=== PATIENT | female | born 1930 | race Caucasian/White ===

== ENCOUNTER 2016-11-17 11:31 | Inpatient (IN) | payer MEDICARE, BC ==
[~2016-11-17] VITALS: Ht 165.1 cm; Wt 72.6 kg
--- NOTE | ~2016-11-17 | CON ---
PATIENT'S NAME: WENDY SANDS [facility] AGE: 86 Y [address] ROOM: [place] [address] LOCATION: [facility] ADMIT DATE: 11/17/2016 Consultation DISCHARGE DATE: FAMILY PHYSICIAN: Maxi Esteves DO ATTENDING PHYSICIAN: Yang Craven DATE OF CONSULTATION: 12/04/2016 REFERRING PHYSICIAN: PATRICIA MANNING MD CHIEF COMPLAINT: Urinary urgency and frequency. HISTORY OF PRESENT ILLNESS: The patient is an 86-year-old female, who is currently admitted to the rehabilitation unit for treatment given her recent history of stroke. She had initially presented with right-sided weakness, left hand weakness, and wrist pain at the [facility]. She also had an apparent unwitnessed fall, which resulted in a left metatarsal fracture. She was also found on CT scan to have a 2 cm left basal ganglia hemorrhage. The patient is a poor historian, but nursing reports that she has had some difficulties with urinary urgency and frequency. She has been emptying her bladder well with minimal residual and her most recent postvoid residual was 94 mL. I did have the nurses check another urine yesterday, which came back unimpressive with negative nitrites and no bacteria. Her urine culture has not had any growth to date. She also was reportedly treated recently with Keflex. The Hospitalist Team has been also treating her for a yeast vaginitis. The patient has no further questions or concerns at this time. PAST MEDICAL HISTORY: 1. Aortic valve stenosis. 2. Hypertension. 3. Hyperlipidemia. 4. Diabetes mellitus. 5. Left basal ganglia stroke. 6. Atrial fibrillation. 7. Hypothyroidism. 8. Congestive heart failure. 9. Anemia. PAST SURGICAL HISTORY: 1. Tonsillectomy and adenoidectomy. 2. Cataract surgery. 3. Aortic valve replacement in March 2014. 4. Left heart catheterization in March 2014. PATIENT'S NAME: WENDY SANDS [facility] AGE: 86 Y [address] ROOM: [place] [address] LOCATION: [facility] ADMIT DATE: 11/17/2016 Consultation DISCHARGE DATE: FAMILY PHYSICIAN: Maxi Esteves DO ATTENDING PHYSICIAN: Yang Craven FAMILY HISTORY: No reported family history of any genitourinary abnormalities. SOCIAL HISTORY: The patient is and had been living in an assisted living facility. She denies any alcohol or tobacco use. ALLERGIES: CODEINE, SIMVASTATIN, DARVOCET, AND NAPROXEN. MEDICATIONS: See hospitalization medication reconciliation. REVIEW OF SYSTEMS: A full 10+ point review of systems was performed with pertinent positive and negative findings included in the history of present illness. All other systems were reviewed and are otherwise negative. PHYSICAL EXAMINATION: VITAL SIGNS: Temperature 97.6 Fahrenheit, pulse 81, blood pressure 105/59, respiratory rate 18, and oxygen saturation 94% on room air. CONSTITUTIONAL: No acute distress. Hemodynamically stable. HEENT: Extraocular muscles intact. Mucous membranes moist. No drainage per ears or nose. CARDIAC: Good peripheral perfusion. RESPIRATORY: No audible wheezing. ABDOMEN: Soft, nontender, and nondistended. MUSCULOSKELETAL: Moves all extremities. PSYCHIATRIC: The patient is somewhat of a poor historian, but fairly normal affect. HEMATOLOGIC: No bruising or active sites of bleeding. IMPRESSION: 1. Urinary urgency. 2. Urinary frequency. PLAN: I had a brief discussion with the patient regarding my findings. Her urinary urgency and frequency is not likely secondary to urinary tract infection given negative urinalysis and no significant bacterial growth on culture. I would agree with the Hospitalist Team that some of this urgency and frequency could be secondary to her current yeast vaginitis. I will defer to the Hospitalist Team on continued treatment for her vaginitis. She appears to be emptying her bladder well with minimal residual on postvoid residual bladder scan. I also agree with the Hospitalist Team that I would be hesitant on starting an PATIENT'S NAME: WENDY SANDS [facility] AGE: 86 Y [address] ROOM: [address] [place] [id number] LOCATION: [facility] ADMIT DATE: 11/17/2016 Consultation DISCHARGE DATE: FAMILY PHYSICIAN: Maxi Esteves DO ATTENDING PHYSICIAN: Yang Craven anticholinergic in this 86-year-old frail patient. The primary team, however, could consider a beta-3 agonist, which would be more favorable from a side effect profile for her with Myrbetriq 50 mg daily if they are able to get this from pharmacy. I do not recommend any further evaluation or treatment at this time from a urologic perspective. She may also possibly have a component of neurogenic bladder. Certainly contact our service with any further questions or concerns at this time, but at this point Urology will be signing off. MD JACKIE TABOR/suzi /[id number] d: 12/04/16 1811 t: 12/05/16 1553, CONSULTATION REPORT
--- NOTE | ~2016-11-17 | CON ---
PATIENT'S NAME: ARA SANDS [facility] AGE: 86 Y [address] ROOM: [id number] [place], [place] [address] LOCATION: [facility] ADMIT DATE: 11/17/2016 Consultation DISCHARGE DATE: FAMILY PHYSICIAN: Maxi Esteves DO ATTENDING PHYSICIAN: Ramin Rogers DATE OF CONSULTATION: 12/07/2016 REFERRING PHYSICIAN: PATRICIA MANNING MD Team members reporting include Dr. Yang Craven acting for Dr. Rogers this week; Temitope Steen, health care social worker, backup on Dr. Rogers; Honey Arreguin, RN; Ashley Alfredo, PT; Yuliana Corley, PT; Laura Chappell, OT; Rafia Smith, Speech Therapy; Vangie Juarez, therapeutic rec; and Sister Darcy Barnett, Pastoral Care. CURRENT STATUS: Ara is an 86-year-old woman, admitted to our inpatient rehab unit following a CVA. The patient is continent of bowel and bladder. Skin overall is pretty good, has a bruise on her left toe and her right elbow. She occasionally complains of a headache. The patient did have a yeast infection, and this has helped considerably with her incontinence. The patient is on a consistent carbohydrate, uses a tippy cup every meal with built-up silverware taking Glucerna t.i.d. and Magic Cup b.i.d. The patient can complete transfers, sit to supine, and supine to sit, contact guard assistance to minimal assistance; kbi-mz-wajhb and stand to sit, minimal assistance; and bed to chair and chair to bed, contact guard assistance to minimal assistance. She can walk up to 50 feet with a platform front-wheeled walker which is still a dependent task. Stairs have not been done yet for safety. She can propel her wheelchair 50 feet at contact guard assistance. She has met 3 out of 5 short-term PT goals. The patient can dress her upper body at moderate assistance; lower body, dependent; grooming, standby; bathing, moderate assistance; toilet and shower transfers, moderate assistance; toileting, dependent; and feeding, standby assistance. She has met 0 short-term OT goals. The patient's comprehension is at mod I; language and expression, standby; memory, max to moderate assistance; and problem solving, standby. The patient can complete car transfers at minimal assistance. She does do some scanning when she is out. She uses her right upper extremity to roll dice and hold cards. The patient is open to pastoral care. DISCHARGE PLAN: The patient is receiving 3 hours of PT, OT, and Speech, Tuesday through Tuesday. The patient has daily rehab, nursing, and physiatry involvement as well as therapeutic recreational services 4 days per week. The patient has shown functional improvement and is progressing. Please see her plan of care for specific goals. Plan is for the patient to discharge in approximately 2 PATIENT'S NAME: ARA SANDS [facility] AGE: 86 Y [address] ROOM: [address] [place] [id number] LOCATION: [facility] ADMIT DATE: 11/17/2016 Consultation DISCHARGE DATE: FAMILY PHYSICIAN: Maxi Esteves DO ATTENDING PHYSICIAN: Ramin Rogers. Plan is for the patient to go to a senior living facility upon discharge. TEMITOPE STEEN FOR RAMIN ROGERS MD TD/modl /[id number] d: 12/13/161950 t: 01/06/17 1606, CONSULTATION REPORT
--- NOTE | ~2016-11-17 | CON ---
PATIENT'S NAME: ARA SANDS [facility] AGE: 86 Y [address] ROOM: [place] [address] LOCATION: [facility] ADMIT DATE: 11/17/2016 Consultation DISCHARGE DATE: FAMILY PHYSICIAN: Maxi Esteves DO ATTENDING PHYSICIAN: Ramin Real REFERRING PHYSICIAN: PATRICIA MANNING MD REFERRING PHYSICIANS: Dr. Maxi Esteves and Dr. Real. REASON FOR CONSULT: CVA with known remote history of paroxysmal atrial fibrillation in 2013. Ara was admitted to the [facility] on 11/03/2016 after she had an unwitnessed fall. She was not aware of what caused the fall, but she had a resultant left wrist and hand pain and ended up with metatarsal fracture and was found to have right-sided weakness. Her CT scan showed a 2 cm left basal ganglia hemorrhage. The patient displayed a right hemiparesis as well as some aphasia. She was evaluated by Dr. Wisdom and was felt that it was a nonsurgical case and that they should continue to watch her at [facility]. She now presents to the inpatient rehab for further intense therapy. Currently, she denies any problems with palpitations, lightheadedness, or dizziness. No presyncope or syncopal episodes. PAST MEDICAL HISTORY: 1. Aortic valve stenosis, status post aortic valve replacement #19 mm Sykes Magna tissue valve in March 2014. 2. Essential hypertension. 3. Dyslipidemia. 4. New onset of diabetes mellitus diagnosis. PAST SURGICAL HISTORY: 1. Fifth metacarpal fracture on the right hand. 2. T and A. 3. Cataract extraction. 4. Aortic valve replacement by Dr. Evans in March 2014. 5. Left heart catheterization in March 2014. ALLERGIES: CODEINE CAUSES A RASH, MYALGIAS ON SIMVASTATIN, GI UPSET WITH DARVOCET, NAPROXEN WHILE DRINK. CURRENT MEDICATIONS: 1. Tylenol 650 mg three times a day. 2. Enalapril 10 mg twice a day. 3. Ferrous sulfate 325 mg daily. 4. Levothyroxine daily. PATIENT'S NAME: ARA SANDS [facility] AGE: 86 Y [address] ROOM: [place] [address] LOCATION: [facility] ADMIT DATE: 11/17/2016 Consultation DISCHARGE DATE: FAMILY PHYSICIAN: Maxi Esteves DO ATTENDING PHYSICIAN: Ramin Real 5. MiraLAX 17 g twice a day. 6. Aspirin 81 mg daily. 7. Biofreeze topical gel as needed. 8. Colace 100 mg twice a day. 9. Lasix 20 mg daily. 10. Metoprolol tartrate 50 mg twice a day. 11. Crestor 5 mg on Tuesday, Tuesday, and Tuesday. 12. Effexor 75 mg daily. SOCIAL HISTORY: She had been living in an assisted living. She denies alcohol or tobacco use. She is . FAMILY HISTORY: Father in his 60s. He had coronary artery disease. He also had skin cancer. Mother of breast cancer. She also had diabetes mellitus. REVIEW OF SYSTEMS: A 13-point review of systems was obtained and was negative other than noted above. PHYSICAL EXAMINATION: HEART: Heart rates in the 50s regular with a normal S1, S2 with grade 2/6 systolic ejection murmur as well as a sharp click and preserved 2nd heart sound. LUNGS: Sounds showed no evidence of wheezes, rales, or rhonchi. HEENT: Her speech is a little bit slurred. Her neck is without JVD, adenopathy, or carotid bruits. ABDOMEN: Soft. Bowel sounds are present. EXTREMITIES: No peripheral edema. No clubbing and no cyanosis. NEUROLOGIC: She is able to flex her right arm, but unable to extend her hands. Gait was not assessed. LABORATORY DATA: Accu-Chek has been in the 120s to 140 range. WBC 11.9, hemoglobin 14.1, and platelets are 86. Glucose 122, BUN 14, creatinine 0.8. Sodium is 137, potassium 3.9, magnesium was 2.0, hemoglobin A1c was 7.3. UA showed 100 leukocytes, negative nitrites, and 2 to 5 epithelials, moderate bacteria. TSH 1.060. ASSESSMENT: 1. Cerebrovascular accident, small hemorrhagic stroke. She does have a very remote history of paroxysmal atrial fibrillation that was documented in a note back in 2013, but has not had any further recurrence that we know of. We will place a telemetry for short periods time to rule out any PATIENT'S NAME: SHAVON ARA Josue [facility] AGE: 86 Y [address] ROOM: [address] [place] [id number] LOCATION: [facility] ADMIT DATE: 11/17/2016 Consultation DISCHARGE DATE: FAMILY PHYSICIAN: Maxi Esteves DO ATTENDING PHYSICIAN: Ramin Real arrhythmic events. 2. Aortic valve stenosis. She had an echocardiogram done in August of 2015, her EF at that time was 55-60. She had mild LVH with assessment of grade 1 diastolic dysfunction. The aortic valve was prosthetic with no perivalvular leak and appeared to be functioning appropriately. We will continue to monitor. 3. Hypertension. Blood pressure is under good control. Continue with her current home medications. The assessment and plan, history of present illness, and physical exam are per Dr. Damion Toth. We would like to thank Dr. Real for allowing us to participate in this patient's care. CASTILLO EL APRN FOR MATT TOTH MD TGP/modl /[id number] d: 11/18/16 1659 t: 12/30/16 1134, CONSULTATION REPORT
--- NOTE | ~2016-11-17 | HP ---
PATIENT'S NAME: WENDY SANDS [facility] AGE: 86 Y [address] ROOM: [place] [address] LOCATION: [facility] ADMIT DATE: 11/17/2016 History & Physical DISCHARGE DATE: FAMILY PHYSICIAN: Maxi Esteves DO ATTENDING PHYSICIAN: Ramin Real DATE OF SERVICE: 11/18/[address] Real. The patient was seen and examined on 11/18/2016. CHIEF COMPLAINT: Boxer's fracture, left hand. HISTORY OF PRESENT ILLNESS: This 86-year-old female fell on 11/04/2016 at her home in [place], [place]. She bumped her head and had some mental status changes and injured her left hand. She demonstrated hemiparesis and aphasia. X-rays of her left hand demonstrated a boxer's fracture. She was placed in an ulnar gutter splint. CT scan of her head showed a 2-cm left basal ganglia hemorrhage. Dr. Wisdom recommended nonsurgical treatment of the basal ganglia hemorrhage. She is improved and is currently hospitalized at the Inpatient Rehab Unit at [facility]. Her speech is improved as well as her memory deficits. She complains of only mild pain in her left hand. PAST MEDICAL HISTORY: No prior fractures, aortic valve stenosis, status post aortic valve replacement, dyslipidemia, essential hypertension, hypothyroidism, type 2 diabetes, status post tonsillectomy and cataract extractions, history of hemangiomas, chronic constipation, and depression. ALLERGIES: CODEINE. MEDICATIONS: 1. Enalapril. 2. Ferrous sulfate. 3. Levothyroxine. 4. MiraLAX. 5. Aspirin 81 mg daily. 6. Colace. 7. Lasix. 8. Metoprolol. 9. Crestor. 10. Effexor. PATIENT'S NAME: WENDY SANDS [facility] AGE: 86 Y [address] ROOM: [place] [id number] LOCATION: [facility] ADMIT DATE: 11/17/2016 History & Physical DISCHARGE DATE: FAMILY PHYSICIAN: Maxi Esteves DO ATTENDING PHYSICIAN: Ramin Real SOCIAL HISTORY: . Lived in assisted living in [place]. No alcohol or tobacco use. FAMILY HISTORY: Positive for coronary artery disease, skin cancer, and diabetes in her mother, and breast cancer in paternal grandmother. REVIEW OF SYSTEMS: No coughs, colds, fevers, chills, or sore throats. No chest pain or trouble breathing. No nausea or vomiting. No dysuria or hematuria. She has had mental status changes, which have cleared. She did have some dizziness and decreased mental status. PHYSICAL EXAMINATION: GENERAL: She is mildly drowsy. She is awake and responds to questions. VITAL SIGNS: Blood pressure 129/73, pulse 68 and regular, respirations 17, and temp 98, HEENT: Atraumatic, normocephalic. PERRL. EOMI. TMs clear. Throat clear. NECK: Supple. CHEST: Clear to auscultation. HEART: Regular rhythm. ABDOMEN: Mildly obese, soft, nontender. No masses. EXTREMITIES: She has a little weakness in her right upper and lower extremities. Her splint is removed, she has mild tenderness and swelling at the 5th metacarpal, she is able to flex and extend her digits. There is no rotational deformity. Sensation is intact. Pulses good. Reflexes equal upper and lower extremity. LABORATORY DATA: X-rays AP, lateral, and obliques of her left hand demonstrate a boxer's fracture with volar angulation. Reduction is satisfactory. IMPRESSION: 1. Boxer's fracture with volar angulation, left 5th metacarpal. 2. Status post fall with mental status changes, now resolving with basal ganglia hemorrhage. 3. Hypothyroidism. 4. Hypertension. 5. Dyslipidemia. 6. Status post aortic valve replacement. 7. Type 2 diabetes. 8. Status post tonsillectomy and cataract extractions. 9. Depression. PATIENT'S NAME: WENDY SANDS [facility] AGE: 86 Y [address] ROOM: [place] [address] LOCATION: [facility] ADMIT DATE: 11/17/2016 History & Physical DISCHARGE DATE: FAMILY PHYSICIAN: Maxi Esteves DO ATTENDING PHYSICIAN: Ramin Real PLAN: An ulnar gutter splint was applied to the left forearm and hand immobilizing the fracture. She may use the hand as tolerated in the splint and progress with physical and occupational therapy. In 2 weeks, we can remove the splint to begin exercises for her hand and follow up x-rays in a couple of weeks. I discussed the treatment plan with the patient. She understands and desires to proceed as planned. MD LUCIE DIMAS/modl /[id number] CC: DO Ramin Fox MD D: [id number] T: [id number] HISTORY & PHYSICAL
--- NOTE | ~2016-11-17 | CON ---
PATIENT'S NAME: WENDY SANDS [facility] AGE: 86 Y [address] ROOM: [address] [place], [place] [address] LOCATION: [facility] ADMIT DATE: 11/17/2016 Consultation DISCHARGE DATE: 12/23/2016 FAMILY PHYSICIAN: Maxi Esteves DO ATTENDING PHYSICIAN: Ramin Rogers DATE OF CONSULTATION: 12/14/2016 REFERRING PHYSICIAN: Polly Estrada MD Team members reporting include Dr. Rogers; Temitope Steen, social professionals; Honey Arreguin, RN; Ashley Alfredo, PT; Yuliana Corley, PT; Laura Chappell, OT; aRfia Smith, Speech Therapy; Vangie Juarez, therapeutic rec; and Sister Eneida Barrera, pastoral Care. CURRENT STATUS: Beatrice Bullock is an 86-year-old woman, who is admitted to our inpatient rehab unit following a CVA. The patient is currently continent of bowel and bladder, occasional incontinence of bladder. She does have redness on her bottom with no open areas. Taking Tylenol for pain. She can transfer sit to supine and supine to sit, contact guard assistance; ptv-[id number] and stand to sit, contact guard assistance; and bed to chair and chair to bed, contact guard assistance. She can complete a scoot transfer at contact guard assistance. She can walk 30 feet with minimal to moderate assistance using a dominguez walker. This is still considered a some dependent task as it requires 2 people at times. She can climb up four stairs with 2 railings at moderate to dependents. She has met 3/4 short-term PT goals. The patient can dress her upper body at standby; lower body, dependent; grooming, standby; bathing, minimal assistance; toilet and shower transfers, contact guard assistance using a scoot technique. Toileting max to dependent with lots of verbal cues needed and feeding, standby assistance. The patient overall is attending to her right side more. She has met 3/5 short-term OT goals. Comprehension, language, and expression are mod I. memory moderate to max assistance; and problem solving, standby assistance. She can complete car transfers at contact guard assistance to minimal assistance. She does have a memory book. DISCHARGE PLAN: The patient is receiving 3 hours of PT, OT, and speech Tuesday through Tuesday. The patient has daily rehab, nursing, and physiatry involvement as well as therapeutic recreational services 4 days per week. The patient has shown functional improvement and is progressing. Please see her plan of care for specific goals. Plan is for patient to discharge in approximately 7 to 10 days. Plan [facility]. PATIENT'S NAME: WENDY SANDS [facility] AGE: 86 Y [address] ROOM: [id number] [place] [id number] LOCATION: [facility] ADMIT DATE: 11/17/2016 Consultation DISCHARGE DATE: 12/23/2016 FAMILY PHYSICIAN: Maxi Esteves DO ATTENDING PHYSICIAN: Ramin Rogers TEMITOPE STEEN FOR RAMIN ROGERS MD TD/maribelll /[id number] d: t: 12/24/16 1453, CONSULTATION REPORT
--- NOTE | ~2016-11-17 | CON ---
PATIENT'S NAME: WENDY SANDS [facility] AGE: 86 Y [address] ROOM: [place] [address] LOCATION: [facility] ADMIT DATE: 11/17/2016 Consultation DISCHARGE DATE: FAMILY PHYSICIAN: Maxi Esteves DO ATTENDING PHYSICIAN: Ramin Real DATE OF CONSULTATION: 11/17/2016 REFERRING PHYSICIAN: PATRICIA MANNING MD CONSULTATION NOTE ATTENDING PHYSICIAN: Ramin Real MD CONSULTING PHYSICIAN: Patricia Manning MD REASON FOR CONSULTATION: Medication management. HISTORY OF PRESENT ILLNESS: The patient is a pleasant 86-year-old female, who fell on 11/04/2016. A CT scan at [facility] showed a 2 cm left basal ganglia hemorrhage. The patient displayed right hemiparesis and some aphasia. During the fall, she sustained a 5th metacarpal fracture on the right-hand side. This is currently splinted. CT scan had been initially evaluated by Dr. Wisdom. He felt that it was a nonsurgical case and they can continue to watch the patient at [place]. If any signs of neurological change occurred, the patient was to be transferred here, however, the patient continued to do well. At this point in time, she is getting some range of motion back on her right side upper and lower extremities. Her speech is cleared up. The patient suffers no increased memory deficits. At this time, she is admitted to [facility] for continued intensive rehabilitation. PAST MEDICAL HISTORY: Illnesses include: 1. Aortic valve stenosis status post aortic valve replacement with bioprosthetic valve in 2013. 2. Dyslipidemia. 3. Essential hypertension. 4. Hypothyroidism. 5. New-onset diabetes mellitus, type 2. 6. 5th metacarpal fracture on the right. 7. Status post tonsillectomy. 8. Status post cataract extraction. PATIENT'S NAME: WENDY SANDS [facility] AGE: 86 Y [address] ROOM: [place] [address] LOCATION: [facility] ADMIT DATE: 11/17/2016 Consultation DISCHARGE DATE: FAMILY PHYSICIAN: Maxi Esteves DO ATTENDING PHYSICIAN: Ramin Real 9. History of hemangioma. 10. Chronic constipation. 11. Depression. ALLERGIES: CODEINE. CURRENT MEDICATIONS: Include: 1. Tylenol 650 mg p.o. 3 times daily. 2. Enalapril 10 mg twice daily. 3. Ferrous sulfate 325 mg daily. 4. Levothyroxine 125 mcg daily. 5. MiraLAX 17 g twice daily. 6. Aspirin enteric-coated 81 mg. 7. Biofreeze topical gel as needed. 8. Colace 100 mg twice daily. 9. Lasix 20 mg daily. 10. Metoprolol tartrate 50 mg twice daily. 11. Crestor 5 mg on Mondays, Wednesdays, and Fridays. 12. Effexor XR 75 mg once daily. SOCIAL HISTORY: The patient is , lived in an assisted living facility in [place]. Denies any alcohol, tobacco, or drug use. FAMILY HISTORY: Significant for coronary artery disease and skin cancer in her father. Diabetes in her mother, and breast cancer in a paternal grandmother. REVIEW OF SYSTEMS: A 13-point review of systems was obtained and otherwise negative other than noted above. PHYSICAL EXAMINATION: VITAL SIGNS: Temperature is 98.1, pulse is 56, respirations 16, and blood pressure 137/60. She is 92% on room air. Weight is 75.75 kg. GENERAL: The patient is alert, oriented, in no acute distress. HEENT: Head, normocephalic and atraumatic. Eyes; PERRL. EOMI. Ears; TMs are intact. Nonerythematous. Canals are clear. Nose is patent. Mucosa is pink and moist. Throat; posterior pharynx nonerythematous. No tonsillar hypertrophy or exudates. NECK: Supple. No adenopathy or thyromegaly. LUNGS: Clear to auscultation and percussion bilaterally. Breath sounds are even and regular throughout. PATIENT'S NAME: WENDY SANDS [facility] AGE: 86 Y [address] ROOM: [place] [id number] LOCATION: [facility] ADMIT DATE: 11/17/2016 Consultation DISCHARGE DATE: FAMILY PHYSICIAN: Maxi Esteves DO ATTENDING PHYSICIAN: Ramin Real HEART: Regular with a click and murmur of her prosthetic valve. ABDOMEN: Soft, nondistended. Positive bowel sounds auscultated. No masses or organomegaly palpated. EXTREMITIES: Free of edema, cyanosis, or clubbing. NEUROLOGIC: She has diminished range of motion in her right and left lower extremities. Her motor strength and fine motor skills are diminished. Left upper extremity has minimal range of motion secondary to extensive splinting of the left hand. Full range of motion and sensation in the left lower extremity. LABORATORY DATA: I do have a urinalysis present at our facility. On microanalysis, it shows 10- 20 white blood cells, and moderate bacteria. IMPRESSION AND PLAN: 1. 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 We will continue with restorative care with occupational, physical, and speech therapies. We will continue her aspirin at this time as well as her medications for secondary risk reduction. 2. Aortic valve stenosis status post aortic valve replacement. Monitor fluid status closely. Continue her Lasix at this time as well as her metoprolol. 3. Dyslipidemia, continue Crestor. 4. Essential hypertension. Continue medications with holding parameters in place. 5. Hypothyroidism. We will check a TSH. Otherwise, continue her levothyroxine. 6. 5th metacarpal fracture. We will have Dr. Craven evaluate the patient for activity and any use of assistive devices. 7. Chronic constipation. Continue bowel stimulants as ordered. 8. New-onset diabetes mellitus. As reported by the family, we will get a hemoglobin A1c and cover with sliding scale and diabetic diet. Make adjustments as necessary to her regimen. 9. Code Status: DNR. We do appreciate participating in this patient's care and thank you very much for the ability to serve her while hospitalized at [facility]. WILSON LEDESMA FOR PATRICIA MANNING MD FRIDA/modl PATIENT'S NAME: WENDY SANDS [facility] AGE: 86 Y [address] ROOM: [place] [address] LOCATION: [facility] ADMIT DATE: 11/17/2016 Consultation DISCHARGE DATE: FAMILY PHYSICIAN: Maxi Esteves DO ATTENDING PHYSICIAN: Ramin Real #: [id number] d: 11/17/162249 t: 01/02/17 161, CONSULTATION REPORT
--- NOTE | ~2016-11-17 | HP ---
PATIENT'S NAME: WENDY SANDS [facility] AGE: 86 Y [address] ROOM: [address] [address] LOCATION: [facility] ADMIT DATE: 11/17/2016 History & Physical DISCHARGE DATE: FAMILY PHYSICIAN: Maxi Esteves DO ATTENDING PHYSICIAN: Ramin Real DATE OF SERVICE: This 86-year-old is admitted for continuous medical treatment and intensive rehabilitation, referred from [facility] with, 1. Right hemiplegia secondary to left basal ganglia, hemorrhagic stroke, with unstable gait. 2. Dependent in activities of daily and self care. She is at the present time, alert, oriented. Vitals are as follows: Blood pressure 149/74, temperature 97.5, pulse 88, respiration rate 18-20. She is 5 feet 5 inches tall and weighs 75.5 kg. ALLERGIES: REPORTED THAT SHE IS ALLERGIC TO CODEINE. SHE IS AT THE PRESENT TIME ON THE FOLLOWING MEDICATIONS. 1. DOCUSATE SODIUM 100 MG P.O. DAILY. 2. FUROSEMIDE 20 MG P.O. DAILY. 3. METOPROLOL TARTRATE 50 MG ONE TABLET DAILY. 4. ROSUVASTATIN 10 MG, GIVE 5 MG P.O. ON TUESDAY, TUESDAY, AND TUESDAY. 5. VENLAFAXINE 75 MG P.O. DAILY EXTENDED RELEASE. 6. TYLENOL 325 MG 1 P.O. 4 HOURS, DO NOT EXCEED ACETAMINOPHEN 4 G Q.24 HOURS. 7. ENALAPRIL TABLET 10 MG P.O. B.I.D. 8. FERROUS SULFATE 325 MG P.O. DAILY. 9. LEVOTHROID 50 MCG P.O. DAILY. 10. POLYETHYLENE GLYCOL 17 G P.O. B.I.D. 11. ASPIRIN EC 81 MG ONE TABLET P.O. DAILY. 12. MIRALAX 17 G P.O. DAILY. 13. TEDS KNEE-HIGH WITH PLEXIPULSES. PAST MEDICAL HISTORY: Past history of significant, 1. History of fifth left metacarpal bone fracture, at the present time she splinted with the next finger. 2. Hypertension. 3. Mitral valve replacement. 4. Hypothyroid. 5. Possible atrial fibrillation. [facility] AGE: 86 Y [address] ROOM: [place] [address] LOCATION: [facility] ADMIT DATE: 11/17/2016 History & Physical DISCHARGE DATE: FAMILY PHYSICIAN: Maxi Esteves DO ATTENDING PHYSICIAN: Ramin Real 6. Congestive heart failure. 7. Anemia. At the present time, she is able to follow instructions, fairly well. Her speech is clear and not wet. She is weak on the right side, muscle strength throughout at about 3 to 3+ with decreased endurance. She has at high risk of falling. We will put on intensive PT, OT, Speech 3 hours per day, 15 hours per week for about 3-4 week aiming to discharge on modified independence. We will have hospitalist to follow her and have neurologist Dr. Cooper to follow her, Dr. Damion Perez, Cardiology, to follow on her, and Dr. Wisdom also to follow on her. At the present time, her blood work is as follows. Accu-Chek at 0703 hours, 118. CBC: White BC 11.9, RBC 4.63, hemoglobin 14.1, hematocrit 42.6, and platelets 86. CMS: Sodium 137, potassium 3.9, chloride 104, CO2 24, BUN 14, creatinine 0.8 and glucose 122. Hemoglobin A1c is 7.3. UA with bacteria moderate, but no complaint. Thyroid stimulation hormone 1.060. Prealbumin 26. ASSESSMENT AND PLAN: We will have also Dr. Craven and Dr. Lou to follow on her. Dr. Craven for the fracture of the fifth left metacarpal bone and Dr. Lou for complaint of toothache. The patient will be on intensive PT, OT, and Speech 3 hours per day, 15 hours per week for the coming about 3-4 weeks, aiming to discharge back to her assisted living as before. All the above was explained to her and her son and daughter, they verbalized understanding and agreement. PATIENT'S NAME: WENDY SANDS [facility] AGE: 86 Y [address] ROOM: [place] [address] LOCATION: [facility] ADMIT DATE: 11/17/2016 History & Physical DISCHARGE DATE: FAMILY PHYSICIAN: Maxi Esteves DO ATTENDING PHYSICIAN: Ramin Real MD WMS/modl /[id number] D: [id number] T: [id number] HISTORY & PHYSICAL
--- NOTE | ~2016-11-17 | CON ---
PATIENT'S NAME: ARA SANDS [facility] AGE: 86 Y [address] ROOM: [address] [place] [address] LOCATION: [facility] ADMIT DATE: 11/17/2016 Consultation DISCHARGE DATE: FAMILY PHYSICIAN: Maxi Esteves DO ATTENDING PHYSICIAN: Ramin Rogers DATE OF CONSULTATION: 11/30/2016 REFERRING PHYSICIAN: PATRICIA MANNING MD Team members reporting include Dr. Rogers; Temitope Steen, protective services social worker; Honey Arreguin, RN; Ashley Alfredo, PT; Yuliana Corley, PT; Laura Chappell, OT; Rafia Smith, Speech Therapy; Vangie Juarez, therapeutic rec; and Sister Darcy Barnett, Pastoral Care. CURRENT STATUS: Ara is an 86-year-old woman admitted to our inpatient rehab unit on November 17, 2016, following a CVA. She is occasionally incontinent of bladder. No skin issues. Takes Tylenol for pain. Occasionally complains of pain to her left hand. She is on a consistent carbohydrate diet. She is to get a tippy cup every meal with built-up silverware. The patient is on Glucerna t.i.d. and Magic cup b.i.d. Prealbumin is currently at 25. The patient can transfer sit to supine and supine to sit at minimal assistance; [id number] and stand to sit, minimal assistance. Can complete a scoot transfer at minimal assistance. The patient is able to stand, walking approximately 8 to 10 feet, which is still a labor intensive task that is dependent. The patient has been more alert. She can propel her wheelchair 50 feet on a level surface at contact guard assistance. She has met 2/4 short-term PT goals. The patient can dress her upper body at minimal assistance, takes a lot of time; lower body dressing, dependent; grooming, standby; bathing, moderate assistance; toilet transfers, minimal to moderate assistance. She has met 3/5 short-term OT goals. Comprehension, language, and expression, standby; memory, moderate to max assistance, uses a memory book; problem solving, standby. She needs follow up to complete oral cares. Car transfers will be done at the end of the week. She is using her right hand more in therapy. The patient has been open to pastoral care. DISCHARGE PLAN: The patient is receiving 3 hours of PT, OT, and speech Tuesday through Tuesday. The patient has daily rehab, nursing, and physiatry involvement as well as therapeutic recreational services 4 days per week. The patient has shown functional improvement and is progressing. Please see her plan of care for specific goals. Plan is for the patient to discharge in approximately 2 to 3 weeks. Plan is for the patient to most likely go to a penitentiary facility after discharge here at [facility]. PATIENT'S NAME: ARA SANDS [facility] AGE: 86 Y [address] ROOM: [place] [address] LOCATION: [facility] ADMIT DATE: 11/17/2016 Consultation DISCHARGE DATE: FAMILY PHYSICIAN: Maxi Esteves DO ATTENDING PHYSICIAN: Ramin Rogers TEMITOPERONALD STEEN FOR RAMIN ROGERS MD TD/modl /[id number] d: 12/13/160 t: 01/06/17 1603, CONSULTATION REPORT
--- NOTE | ~2016-11-17 | CON ---
PATIENT'S NAME: WENDY VEE [facility] AGE: 86 Y [address] ROOM: [address] [place], [place] [address] LOCATION: [facility] ADMIT DATE: 11/17/2016 Consultation DISCHARGE DATE: FAMILY PHYSICIAN: Maxi Esteves DO ATTENDING PHYSICIAN: Ramin Real DATE OF CONSULTATION: 11/24/2016 REFERRING PHYSICIAN: PATRICIA MANNING MD SUBJECTIVE: Mrs. Vee was initially admitted to this hospital on November 17, 2016, and Neurology was asked to consult along with the hospitalist team. Reason for admission was a recent stroke where she presented with right-sided weakness, left hand weakness, and wrist pain at [facility]. She is an 86- year-old female patient, who resides in [facility], which is an assisted living facility. She does not give an adequate history and seems to have some history to suggest possibly even some dementia. We have an unknown history of dementia. She does have clear difficulty with word finding that has improved since she had a new onset of a basal ganglia stroke, which was likely associated with a hemorrhagic conversion of this stroke. She presented to the hospital on November 03, 2016, when she was walking around in her facility and apparently fell down, injured her hand, and had both right hand as well as right wrist pain. She was noted to be weak on her right upper extremity and her right lower extremity and she was unable to ambulate. There was no known history of any stroke and her history is only suggestive of some bioprosthetic valve replacement of the aortic valve done in 2013. This valve did not require any oral anticoagulation, but only aspirin was maintained on board. She does have also a history of hypertension, hypothyroidism, and hyperlipidemia. She lived alone and has been a for 17 years. She does have a daughter who apparently lives out of state and a son who lives nearby. Primary issues upon coming to the hospital was a subtle weakness of the right arm and leg. The clear onset of the time of her weakness was unclear, though she was not a candidate for tPA. Her right upper extremity power has since improved to the extent where she now has a pronator drift present and about a 3/5 power in the right upper and lower extremity. She is able to ambulate with assistance and has been participating in physical therapy that started in the hospital at [place] and was now transferred here. A CAT scan was performed in the hospital in [place], which revealed evidence for small hemorrhagic bleed, but this may be related to a small hemorrhagic conversion of a prior stroke into the basal ganglia region on the left brain. There was prominent findings of meningiomas that were significantly calcified and fairly large. They were located in the right frontal lobe, somewhat towards the falx region. There did not appear to be any mass effect to these meningiomas, which is suggestive that they are very slow growing and may have been existing for decades. Another meningioma was located on the right posterior parietal region, also PATIENT'S NAME: WENDY VEE [facility] AGE: 86 Y [address] ROOM: [address] [place], [place] [address] LOCATION: [facility] ADMIT DATE: 11/17/2016 Consultation DISCHARGE DATE: FAMILY PHYSICIAN: Maxi Esteves DO ATTENDING PHYSICIAN: Ramin Real quite large, but apparently no known history of seizures have been associated with these meningiomas and they were essentially benign. PRIOR MEDICAL HISTORY: As mentioned, aortic valve replacement and a history of aortic stenosis. She has been maintained on aspirin. She has a history of hypertension, hypothyroidism, type 2 diabetes. PRIOR SURGERIES: Cataract removal and tonsillectomy. ALLERGIES: CODEINE. CURRENT MEDICATIONS: 1. Enalapril. 2. MiraLax. 3. Levothyroxine. 4. Ferrous sulfate. 5. Aspirin. 6. Metoprolol. 7. Effexor. 8. Lasix. 9. Crestor. SOCIAL HISTORY: The patient has been for 17 years. She lives in assisted living in [place]. She does have 2 children, a boy and a girl. FAMILY HISTORY: Positive for her mother who has diabetes and some coronary artery disease also in her family members. REVIEW OF SYSTEMS: The patient is alert and oriented. She seems to be somewhat confused as to the time course of her being here in our facility and other facilities. She does not recall the events of falling. She denies any history of any seizures. She says that before coming here, she managed her own affairs in her home with cooking and cleaning. There is no recent history of upper respiratory tract infections or urinary tract infections. There is evidence for new stroke into the left basal ganglia with a small hemorrhagic conversion that was not amenable to intervention by Neurosurgery which evaluated the patient on the day of her stroke, on November 03, 2016. The patient has made a good recovery since the stroke and has basically no evidence of aphasia currently, though it was mentioned that her initial presentation suggested PATIENT'S NAME: WENDY VEE [facility] AGE: 86 Y [address] ROOM: [place] [address] LOCATION: [facility] ADMIT DATE: 11/17/2016 Consultation DISCHARGE DATE: FAMILY PHYSICIAN: Maxi Esteves DO ATTENDING PHYSICIAN: Ramin Real some word-finding deficits and slurring of her speech. PHYSICAL EXAMINATION: GENERAL: The patient is alert, oriented, somewhat cranky, wanting to go home. She says that she participates in physical therapy. VITAL SIGNS: Pulse of 68 and regular, respiration rate 17, blood pressure 128/80, temperature is 99. HEENT: Pupils are equal and reactive to light and accommodation. Extraocular muscles are intact. NEUROLOGICAL: There is no notable facial droop. Motor power revealed normal tone in the limbs. The right upper extremity revealed a drift and some proximal weakness and diminished hand imaging manager. She gave about 3/5 power both in the arm and into the leg. Upon the patient standing and ambulating, she did reveal some slowing of her gait, but normal tone was noted in her lower extremities. Reflexes are symmetric at +2 at the patella. Plantar reflexes were neutral. LABORATORY DATA: Laboratory results did show evidence that she experienced a left hand boxer's fracture with volar angulation. The patient did have reduction that was done and she is doing fine. She complains about no pain in that area of the wrist. IMPRESSION: The patient is an 86-year-old female patient, who had the first stroke that we know of into the left basal ganglia region. It was mentioned that this was possibly a hemorrhagic stroke. However, the etiology would be more like a hemorrhagic conversion of a small stroke. Her blood pressure is well- controlled and I do not think that this was related to a hypertensive-related stroke. She seems to be doing fairly well and getting more power back into her upper extremities. We could consider evaluating the patient with formal cognitive testing as an outpatient, as it is very difficult to assess her memory on a one-time basis. She may have some early dementia that should be evaluated more closely as an outpatient. I would like to follow her up in the future. In the mean time, the patient should continue on current dose of aspirin 81 mg daily, post stroke as well as the Restoril 5 mg 3 times a week. If there are any specific questions, Neurology will be available to answer her questions. MD MINDY FAY/suzi PATIENT'S NAME: WENDY VEE [facility] AGE: 86 Y [address] ROOM: [place] [address] LOCATION: [facility] ADMIT DATE: 11/17/2016 Consultation DISCHARGE DATE: FAMILY PHYSICIAN: Maxi Esteves DO ATTENDING PHYSICIAN: Ramin Real /[id number] d: 11/25/16 0027 t: 11/25/16 1442, CONSULTATION REPORT
--- NOTE | ~2016-11-17 | CON ---
PATIENT'S NAME: WENDY SANDS [facility] AGE: 86 Y [address] ROOM: [address] [place], [place] [address] LOCATION: [facility] ADMIT DATE: 11/17/2016 Consultation DISCHARGE DATE: 12/23/2016 FAMILY PHYSICIAN: Maxi Esteves DO ATTENDING PHYSICIAN: Ramin Rogers DATE OF CONSULTATION: 12/21/2016 REFERRING PHYSICIAN: Polly Estrada MD Team members reporting include Dr. Rogers; Temitope Steen, group social worker; Honey Arreguin, RN; Ashley Alfredo, PT; Yuliana Corley, PT; Heidi Jeffrey, OT; Rafia Smith, Speech Therapy; Vangei Juarez, therapeutic rec; and Sister Eneida Barrera, pastoral Care. CURRENT STATUS: Beatrice Bullock is an 86-year-old woman, who is admitted to our inpatient rehab unit following a CVA. She is occasionally incontinent of bladder. She does have redness on her bottom with no open areas. No complaints of pain. She is on a consistent carbohydrate diet. Glucerna is taken three times a day. Prealbumin is 23. The patient can transfer sit to supine and supine to sit at standby; sit to stand and stand to sit, contact guard assistance; and bed to chair and chair to bed, minimal assistance. She can walk 50 feet with a front- wheeled walker at minimal assistance overall and she can climb 5 stairs with 4- inch steps and two railings at moderate assistance. She has met 4/4 short- term PT goals. The patient can dress her upper body at standby; lower body moderate assistance; grooming, standby; bathing, minimal assistance; toilet transfers, contact guard assistance. Toileting max assistance; shower transfers, minimal assist. She has met 2/4 short-term OT goals. Comprehension is at mod I; language and expression, standby to mod I, memory moderate assistance, problem solving, standby, and swallowing standby. The patient is writing with her affected hand in her memory book. Car transfers are currently minimal to contact guard assistance. The patient has been very open to pastoral care. DISCHARGE PLAN: The patient is receiving 3 hours of PT, OT, and speech Tuesday through Tuesday. The patient has daily rehab, nursing, and physiatry involvement as well as therapeutic recreational services 4 days per week. The patient has shown functional improvement and is progressing. Please see her plan of care for specific goals. Plan is for patient to discharge on 12/23/[address] [facility] in [place], [place]. The patient's son plans to transport. PATIENT'S NAME: WENDY SANDS [facility] AGE: 86 Y [address] ROOM: [place] [address] LOCATION: [facility] ADMIT DATE: 11/17/2016 Consultation DISCHARGE DATE: 12/23/2016 FAMILY PHYSICIAN: Maxi Esteves DO ATTENDING PHYSICIAN: Ramin Rogers FOR RAMIN ROGERS MD TD/modl /[id number] d: t: 12/24/16 1444, CONSULTATION REPORT
--- NOTE | ~2016-11-17 | DS ---
PATIENT'S NAME: [facility] AGE: 86 Y [address] ROOM: [address] [place], [place] [address] LOCATION: [facility] ADMIT DATE: 11/17/2016 Discharge Summary DISCHARGE DATE: FAMILY PHYSICIAN: Maxi Esteves DO ATTENDING PHYSICIAN: Ramin Real This 86-year-old lady was admitted to Rehab Unit at [facility], [place], [place] on 11/17/2016 and is discharged to go to [facility] stay in [place], [place] on 12/23/2016. 1. She was admitted with unstable gait, dependent activities of daily self- care, right-sided weakness, secondary to left basal ganglia hemorrhagic stroke, deemed not a surgical candidate. 2. She was also with some confusion and on and off sleepy. She is doing well at the present time, alert, oriented. VITAL SIGNS: Blood pressure 134/67, temperature 96.2, pulse 71, and respirations 16. Her Accu-Cheks today were 121. She is able to transfer with minimum assistance, can ambulate 50 feet x2 with front-wheeled walker, handheld assistant auditor and cuing. She is at the present time to continue with PT, OT, and Speech 3 times per week for the coming 3-4 weeks and follow up with her family physician. No followup with me. Follow up with Dr. Damion Perez, Cardiology as he sees fit. She must follow with her family physician as soon as possible. She should not operate any mechanical or electrical device until she is reevaluated. She should not drive until she is reevaluated. She is on the following medications: 1. Tylenol 650 q.8 h. as needed, do not exceed acetaminophen 4 g q.24 h., give for 30 days. 2. Aspirin 81 mg p.o. daily. 3. Colace 100 mg p.o. daily. 4. Vasotec 10 mg p.o. twice daily. 5. Feosol 325 mg p.o. daily. 6. Lasix 20 mg p.o. in the morning. 7. Levothroid 125 mcg p.o. daily. 8. Glucophage 500 mg p.o. daily. 9. Lopressor 50 mg p.o. daily. PATIENT'S NAME: [facility] AGE: 86 Y [address] ROOM: [address] [place] [id number] LOCATION: [facility] ADMIT DATE: 11/17/2016 Discharge Summary DISCHARGE DATE: FAMILY PHYSICIAN: Maxi Esteves DO ATTENDING PHYSICIAN: Ramin Real 10. MiraLAX 17 g p.o. daily. 11. Crestor 5 mg on Tuesday, Tuesday, and Tuesday. 12. Effexor XR 75 mg p.o. daily. 13. Dulcolax suppository 10 mg rectally p.r.n. as needed. 14. Glucose 16 g p.o. for hypoglycemia p.r.n. as needed. 15. MOM 30 mL p.o. daily. 16. BenGay as needed apply locally. FINAL DIAGNOSES: 1. Unstable gait. 2. Dependent activities of daily self-care. 3. Status post right hemiplegia, secondary to basal ganglia hemorrhage on the left-side leading to unstable gait and dependent activities of daily self-care with confusion. 4. Depression. 5. Anemia. 6. Congestive heart failure, status post mitral valve replacement. 7. Hypothyroid. 8. Probable atrial fibrillation per history. 9. Hypertension. 10. Fracture of the 5th left metacarpophalangeal bone at the present time, healed well. She is to follow with her family physician as soon as possible. All the medication as per discharge summary and any renewal addition or taking away any medication per her family physician please. No followup with me. Follow up with Dr. Damion Perez as she sees fit. Must follow with her family physician as soon as possible. All the above was explained to her and her family. They verbalized understanding and agreement. MD VALENTINO ROMANOS/modl /[id number] d: 12/23/16 0249 t: 12/23/16 1241, DISCHARGE SUMMARY
--- NOTE | ~2016-11-17 | CON ---
PATIENT'S NAME: [facility] AGE: 86 Y [address] ROOM: [address] [place] [id number] LOCATION: [facility] ADMIT DATE: 11/17/2016 Consultation DISCHARGE DATE: FAMILY PHYSICIAN: Maxi Esteves DO ATTENDING PHYSICIAN: Ramin Rogers DATE OF CONSULTATION: 11/23/2016 REFERRING PHYSICIAN: PATRICIA MANNING MD Team members reporting include Dr. Rogers; Temitope Steen, social services aide; Honey Arreguin, RN; Ashley Alfredo, PT; Yuliana Corley, PT; Laura Chappell, OT; Rafia Smith, Speech Therapy; Vangie Juarez, therapeutic rec; and Sister Darcy Barnett, Pastoral Care. CURRENT STATUS: Beatrice Bullock is an 86-year-old woman, admitted to our inpatient rehab unit on November 17, 2016 from [facility] in [place], [place], following a stroke with right hemiplegia. She has a history of aortic valve replacement, history of aortic stenosis, hypertension, hypothyroidism, and type 2 diabetes. She is currently continent of bowel and bladder. She does have some bruising and edema on her skin, taking Tylenol for pain. She is on a consistent carbohydrate diet. She is to have a tippy cup and built up silverware at every meal. She gets Glucerna t.i.d. She can transfer sit to supine and supine to sit at minimal assistance; sit to stand and stand to sit, moderate assistance up in the parallel bars and a scoot transfer moderate assistance. Stairs and ambulation have not been done yet. Goals for Ara have been set for contact guard assistance. The patient can dress her upper body at max assistance, lower body dependent. Grooming, max assistance with hand over hand placement. Bathing moderate assistance, doing a sponge bath. Toilet transfers, moderate to dependent. Toileting dependent. Feeding is standby assistance and loss of setup. She does have active movement in her right arm but she often neglects that right arm. Comprehension is mod I. Language and expression, standby. Memory moderate assistance; problem solving, standby. The patient can do swallowing at minimal assistance. Needs one-to-one supervision, setup of tray. The patient can complete task using her right hand if cued. They are starting her on a memory book. DISCHARGE PLAN: The patient is receiving 3 hours of PT, OT, and speech Tuesday through Tuesday. The patient has daily rehab, nursing, and physiatry involvement as well as therapeutic recreational services 4 days per week. The patient has shown functional improvement and is progressing. Please see her plan of care for specific goals. Plan is for patient to discharge in approximately 3-4 weeks. Plan is for patient to return to home to her assisted living if at all possible. If not, the patient may require a fdc facility. PATIENT'S NAME: [facility] AGE: 86 Y [address] ROOM: [place] [address] LOCATION: [facility] ADMIT DATE: 11/17/2016 Consultation DISCHARGE DATE: FAMILY PHYSICIAN: Maxi Esteves DO ATTENDING PHYSICIAN: Ramin Rogers TEMITOPE STEEN FOR RAMIN ROGERS MD TD/modl /[id number] d: 11/26/162099 t: 01/06/17 1600, CONSULTATION REPORT
[2016-11-17] MEDS ORDERED: TYLENOL325 MG PO (15:09)
[2016-11-17] MEDS ORDERED: COLACE100 MG PO (15:10)
[2016-11-17] MEDS ORDERED: CRESTOR10 MG PO (15:10)
[2016-11-17] MEDS ORDERED: ASPIRIN LO-DOSE81 MG PO (15:10)
[2016-11-17] MEDS ORDERED: EFFEXOR XR75 MG PO (15:11)
[2016-11-17] MEDS ORDERED: VASOTEC2.5 MG PO (15:11)
[2016-11-17] MEDS ORDERED: IRON325 M1 PO (15:11)
[2016-11-17] MEDS ORDERED: LEVOTHROID (S125 MCG PO (15:12)
[2016-11-17] MEDS ORDERED: LASIX20 MG PO (15:12)
[2016-11-17] MEDS ORDERED: MEGARED OMEGA-1 EAC1 PO (15:12)
[2016-11-17] MEDS ORDERED: MIRALAX17 GM PO (15:13)
[2016-11-17 15:17] LABS: BILIRUBIN URINE NEGATIVE (NEGATIVE); BLOOD URINE 10 /UL (NEGATIVE); COLOR URINE YELLOW (YELLOW); GLUCOSE URINE NEGATIVE (NEGATIVE); KETONE URINE NEGATIVE (NEGATIVE); LEUKOCYTES URINE 100 /UL (NEGATIVE); NITRITE URINE NEGATIVE (NEGATIVE); PROTEIN URINE NEGATIVE (NEGATIVE); TURBIDITY URINE CLEAR (CLEAR); UROBILINOGEN URINE NORMAL (NORMAL)
[2016-11-17 15:24] LABS: RBC URINE 0-2 #/HPF (NEGATIVE)
[2016-11-17 15:25] LABS: BACTERIA URINE MODERATE (NEGATIVE); RENAL EPITH URINE 0-2 #/HPF (NEGATIVE)
[2016-11-17 15:26] LABS: MUCUS URINE 1+ (NEGATIVE)
[2016-11-18 05:56] LABS: BASOPHIL # 0.1 K/uL (0.0-0.2); BASOPHIL % 0.5 %; EOSINOPHIL # 0.2 K/uL (0.0-0.5); EOSINOPHIL % 1.7 %; HEMATOCRIT 42.6 % (30.0-46.0); HEMOGLOBIN 14.1 g/dL (10.0-15.0); IMMATURE GRANULOCYTE # 0.1 K/uL (0.0-0.3); IMMATURE GRANULOCYTE % 0.4 %; LYMPHOCYTE # 3.5 K/uL (0.8-4.0); LYMPHOCYTE % 29.6 %; MCH 30.5 pg (27.0-34.0); MCHC 33.1 gm/dL (32.0-36.5); MONOCYTE # 1.3 K/uL (0.0-1.0); MPV 11.5 fl (9.4-12.4); NEUTROPHIL # (ANC) 6.8 K/uL (1.8-7.8); NEUTROPHIL % 56.8 %; NRBC % 0 /100WBC (0-0.00); PLATELET COUNT 86 K/uL (150-450); RBC 4.63 M/uL (3.00-5.00); WBC 11.9 K/uL (4.0-11.0)
[2016-11-18 06:13] LABS: ALBUMIN 3.6 gm/dL (3.5-5.0); ALK PHOS 73 IU/L (33-138); ALT 26 IU/L (12-78); ANION GAP 12.9 (10.0-19.0); AST 38 IU/L (10-40); BLOOD UREA NITROGEN 14 mg/dL (6-24); CALCIUM 9.3 mg/dL (8.5-10.5); CHLORIDE 104 mMol/L (96-110); CO2 24 mMol/L (22-32); CREATININE 0.8 mg/dL (0.5-1.1); ESTIMATED GFR (MDRD EQUATION) > 60; POTASSIUM 3.9 mMol/L (3.7-5.1); SODIUM 137 mMol/L (135-145); TOTAL BILIRUBIN 0.8 mg/dL (0.0-1.5); TOTAL PROTEIN 7.5 g/dL (6.0-8.4)
[2016-11-21 12:50] LABS: BILIRUBIN URINE NEGATIVE (NEGATIVE); BLOOD URINE NEGATIVE /UL (NEGATIVE); COLOR URINE YELLOW (YELLOW); GLUCOSE URINE NEGATIVE (NEGATIVE); KETONE URINE NEGATIVE (NEGATIVE); LEUKOCYTES URINE 25 /UL (NEGATIVE); NITRITE URINE NEGATIVE (NEGATIVE); PROTEIN URINE NEGATIVE (NEGATIVE); TURBIDITY URINE CLEAR (CLEAR); UROBILINOGEN URINE NORMAL (NORMAL)
[2016-11-21 13:03] LABS: BACTERIA URINE NEGATIVE (NEGATIVE); RBC URINE NEGATIVE #/HPF (NEGATIVE); WBC URINE 0-2 #/HPF (NEGATIVE)
[2016-11-24 15:04] LABS: BASOPHIL % 0.3 %; EOSINOPHIL # 0.2 K/uL (0.0-0.5); EOSINOPHIL % 1.8 %; HEMATOCRIT 42.7 % (30.0-46.0); HEMOGLOBIN 14.2 g/dL (10.0-15.0); IMMATURE GRANULOCYTE % 0.3 %; LYMPHOCYTE # 3.1 K/uL (0.8-4.0); LYMPHOCYTE % 26.5 %; MCH 30.8 pg (27.0-34.0); MCHC 33.3 gm/dL (32.0-36.5); MCV 92.6 fl (83.0-98.0); MONOCYTE # 1.4 K/uL (0.0-1.0); MONOCYTE % 11.8 %; NEUTROPHIL # (ANC) 6.9 K/uL (1.8-7.8); NEUTROPHIL % 59.3 %; NRBC % 0 /100WBC (0-0.00); RBC 4.61 M/uL (3.00-5.00); WBC 11.7 K/uL (4.0-11.0)
[2016-11-24 15:05] LABS: PLATELET COUNT 104 K/uL (150-450)
[2016-11-27 10:45] LABS: ALBUMIN 3.5 gm/dL (3.5-5.0); ANION GAP 12.3 (10.0-19.0); CALCIUM 9.2 mg/dL (8.5-10.5); POTASSIUM 4.3 mMol/L (3.7-5.1); TOTAL PROTEIN 7.6 g/dL (6.0-8.4)
[2016-11-27 10:46] LABS: TOTAL BILIRUBIN 0.5 mg/dL (0.0-1.5)
[2016-11-27 12:09] LABS: BILIRUBIN URINE NEGATIVE (NEGATIVE); BLOOD URINE 10 /UL (NEGATIVE); COLOR URINE YELLOW (YELLOW); GLUCOSE URINE NEGATIVE (NEGATIVE); KETONE URINE NEGATIVE (NEGATIVE); LEUKOCYTES URINE 100 /UL (NEGATIVE); NITRITE URINE NEGATIVE (NEGATIVE); PROTEIN URINE NEGATIVE (NEGATIVE); TURBIDITY URINE 1+ (CLEAR); UROBILINOGEN URINE NORMAL (NORMAL)
[2016-11-27 12:19] LABS: WBC URINE FULL FIELD #/HPF (NEGATIVE)
[2016-11-27 12:20] LABS: BACTERIA URINE MODERATE (NEGATIVE); CRYSTALS URINE CALCIUM OXALATE (NEGATIVE); EPITHELIAL URINE 0-2 #/HPF (NEGATIVE); HYALINE CAST URINE 0-2 #/LPF (NEGATIVE); RBC URINE 0-2 #/HPF (NEGATIVE); WBC CLUMPS URINE FEW (NEGATIVE)
[2016-11-29 04:38] LABS: ALBUMIN 3.6 gm/dL (3.5-5.0); ALK PHOS 95 IU/L (33-138); ALT 59 IU/L (12-78); ANION GAP 12.2 (10.0-19.0); AST 76 IU/L (10-40); BLOOD UREA NITROGEN 19 mg/dL (6-24); CALCIUM 9.8 mg/dL (8.5-10.5); CHLORIDE 104 mMol/L (96-110); CO2 25 mMol/L (22-32); CREATININE 0.8 mg/dL (0.5-1.1); ESTIMATED GFR (MDRD EQUATION) > 60; POTASSIUM 4.2 mMol/L (3.7-5.1); SODIUM 137 mMol/L (135-145); TOTAL BILIRUBIN 0.6 mg/dL (0.0-1.5); TOTAL PROTEIN 7.7 g/dL (6.0-8.4)
[2016-12-01 06:02] LABS: BASOPHIL # 0.1 K/uL (0.0-0.2); BASOPHIL % 0.5 %; EOSINOPHIL # 0.3 K/uL (0.0-0.5); EOSINOPHIL % 2.6 %; HEMATOCRIT 42.1 % (30.0-46.0); HEMOGLOBIN 14.1 g/dL (10.0-15.0); IMMATURE GRANULOCYTE # 0.1 K/uL (0.0-0.3); IMMATURE GRANULOCYTE % 0.6 %; LYMPHOCYTE # 2.9 K/uL (0.8-4.0); LYMPHOCYTE % 30.3 %; MCH 31.3 pg (27.0-34.0); MCHC 33.5 gm/dL (32.0-36.5); MCV 93.3 fl (83.0-98.0); MONOCYTE # 1.1 K/uL (0.0-1.0); MONOCYTE % 11.2 %; MPV 10.5 fl (9.4-12.4); NEUTROPHIL # (ANC) 5.3 K/uL (1.8-7.8); NEUTROPHIL % 54.8 %; NRBC % 0 /100WBC (0-0.00); PLATELET COUNT 90 K/uL (150-450); RBC 4.51 M/uL (3.00-5.00); RDW-CV 13.2 % (11.9-14.6); WBC 9.6 K/uL (4.0-11.0)
[2016-12-03 12:56] LABS: BILIRUBIN URINE NEGATIVE (NEGATIVE); BLOOD URINE 10 /UL (NEGATIVE); COLOR URINE YELLOW (YELLOW); GLUCOSE URINE NEGATIVE (NEGATIVE); KETONE URINE NEGATIVE (NEGATIVE); LEUKOCYTES URINE 25 /UL (NEGATIVE); NITRITE URINE NEGATIVE (NEGATIVE); PROTEIN URINE NEGATIVE (NEGATIVE); TURBIDITY URINE CLEAR (CLEAR); UROBILINOGEN URINE NORMAL (NORMAL)
[2016-12-03 13:09] LABS: BACTERIA URINE NEGATIVE (NEGATIVE); EPITHELIAL URINE RARE #/HPF (NEGATIVE); RBC URINE RARE #/HPF (NEGATIVE); WBC URINE NEGATIVE #/HPF (NEGATIVE)
[2016-12-14 06:54] LABS: BASOPHIL # 0.1 K/uL (0.0-0.2); BASOPHIL % 0.5 %; EOSINOPHIL # 0.1 K/uL (0.0-0.5); EOSINOPHIL % 1.5 %; HEMATOCRIT 41.8 % (30.0-46.0); HEMOGLOBIN 14.1 g/dL (10.0-15.0); IMMATURE GRANULOCYTE # 0.1 K/uL (0.0-0.3); IMMATURE GRANULOCYTE % 0.7 %; LYMPHOCYTE % 32.3 %; MCH 30.9 pg (27.0-34.0); MCHC 33.7 gm/dL (32.0-36.5); MCV 91.7 fl (83.0-98.0); MONOCYTE % 10.4 %; MPV 10.6 fl (9.4-12.4); NEUTROPHIL # (ANC) 5.1 K/uL (1.8-7.8); NEUTROPHIL % 54.6 %; NRBC % 0 /100WBC (0-0.00); PLATELET COUNT 94 K/uL (150-450); RBC 4.56 M/uL (3.00-5.00); RDW-CV 13.2 % (11.9-14.6); WBC 9.4 K/uL (4.0-11.0)
[2016-12-14 07:11] LABS: ALBUMIN 3.8 gm/dL (3.5-5.0); ALK PHOS 84 IU/L (33-138); ALT 29 IU/L (12-78); ANION GAP 13.2 (10.0-19.0); AST 38 IU/L (10-40); BLOOD UREA NITROGEN 14 mg/dL (6-24); CALCIUM 9.4 mg/dL (8.5-10.5); CHLORIDE 105 mMol/L (96-110); CO2 26 mMol/L (22-32); CREATININE 0.8 mg/dL (0.5-1.1); ESTIMATED GFR (MDRD EQUATION) > 60; POTASSIUM 4.2 mMol/L (3.7-5.1); SODIUM 140 mMol/L (135-145); TOTAL BILIRUBIN 0.6 mg/dL (0.0-1.5); TOTAL PROTEIN 7.7 g/dL (6.0-8.4)
[2016-12-20 06:50] LABS: ALBUMIN 3.6 gm/dL (3.5-5.0); ALK PHOS 74 IU/L (33-138); ALT 31 IU/L (12-78); ANION GAP 12.2 (10.0-19.0); AST 39 IU/L (10-40); BLOOD UREA NITROGEN 11 mg/dL (6-24); CALCIUM 9.3 mg/dL (8.5-10.5); CHLORIDE 106 mMol/L (96-110); CO2 25 mMol/L (22-32); CREATININE 0.7 mg/dL (0.5-1.1); ESTIMATED GFR (MDRD EQUATION) > 60; POTASSIUM 4.2 mMol/L (3.7-5.1); SODIUM 139 mMol/L (135-145); TOTAL BILIRUBIN 0.7 mg/dL (0.0-1.5); TOTAL PROTEIN 7.4 g/dL (6.0-8.4)
== END 2016-12-23 10:34 | DRG 65 ==
LOC: GIRP 13:49
PROVIDERS: Internal Medicine; Physician Assistant; Urology; ADMIT Physical Medicine & Rehabilitation
PROC: F08Z0ZZ Bathing/Showering Techniques Treatment (ICD-10-PCS; principal; 2016-11-17)
PROC: F08Z2ZZ Grooming/Personal Hygiene Treatment (ICD-10-PCS; principal; 2016-11-17)
PROC: F06Z3ZZ Aphasia Treatment (ICD-10-PCS; principal; 2016-11-17)
PROC: F08Z3ZZ Feeding/Eating Treatment (ICD-10-PCS; principal; 2016-11-17)
DX: I61.0 Nontraumatic intracerebral hemorrhage in hemisphere, subcortical (principal); R47.01 Aphasia; G81.91 Hemiplegia, unspecified affecting right dominant side; E11.9 Type 2 diabetes mellitus without complications; I11.0 Hypertensive heart disease with heart failure; I50.9 Heart failure, unspecified; I48.0 Paroxysmal atrial fibrillation; E03.9 Hypothyroidism, unspecified; F32.9 Major depressive disorder, single episode, unspecified; D64.9 Anemia, unspecified; Z51.89 Encounter for other specified aftercare; I35.0 Nonrheumatic aortic (valve) stenosis; E78.5 Hyperlipidemia, unspecified; S62.306A Unspecified fracture of fifth metacarpal bone, right hand, initial encounter for closed fracture; W18.30XA Fall on same level, unspecified, initial encounter; K59.09 Other constipation; Z66 Do not resuscitate; R26.81 Unsteadiness on feet
CPT/HCPCS: A9270